=== PATIENT | male | born 1990 | race Caucasian/White ===

== ENCOUNTER 2018-09-22 08:18 | Outpatient (CLI) | payer OTHER, SELFPAY ==
[2018-09-22 12:58] LABS: Hemoglobin A1C 6.3 % (4.5-6.2)
== END 2018-09-22 08:38 ==
PROVIDERS: PCP Family Medicine; Visit Provider Family Medicine
DX: E10.9 Type 1 diabetes mellitus without complications (principal)
CPT/HCPCS: 36415; 83036

== ENCOUNTER 2019-03-16 10:07 | Outpatient (CLI) | payer OTHER, SELFPAY ==
[2019-03-16 13:23] LABS: Hemoglobin A1C 7.1 % (4.5-6.2)
== END 2019-03-16 10:27 ==
PROVIDERS: PCP Family Medicine; Visit Provider Family Medicine
DX: E11.9 Type 2 diabetes mellitus without complications (principal)
CPT/HCPCS: 36415; 83036

== ENCOUNTER 2019-09-20 08:10 | Outpatient (CLI) | payer OTHER, SELFPAY ==
[2019-09-20 12:07] LABS: Hemoglobin A1C 7.8 % (4.5-6.2)
== END 2019-09-20 08:30 ==
PROVIDERS: PCP Family Medicine; Visit Provider Family Medicine
DX: E11.9 Type 2 diabetes mellitus without complications (principal)
CPT/HCPCS: 36415; 83036

== ENCOUNTER 2020-04-04 03:42 | Outpatient (CLI) | payer OTHER, SELFPAY ==
[2020-04-04 09:40] LABS: Hemoglobin A1C 6.9 % (3.8-5.6)
[2020-04-04 11:58] LABS: COMMENT (LAB VIEW ONLY) 118.73 mg/dL; Microalb ug/mg Crea 1.4 ug/mg Cr
[2020-04-04 11:59] LABS: Calculated LDL 106 mg/dL (<100); Cholesterol 204 mg/dL (<200); HDL Cholesterol 76 mg/dL (40-60); Triglyceride 112 mg/dL (<150)
== END 2020-04-04 04:02 ==
PROVIDERS: PCP Family Medicine; Visit Provider Family Medicine
DX: E11.9 Type 2 diabetes mellitus without complications (principal); R73.9 Hyperglycemia, unspecified; E78.5 Hyperlipidemia, unspecified
CPT/HCPCS: 36415; 80061; 82043; 82570; 83036

== ENCOUNTER 2023-02-17 13:06 | Outpatient (CLI) | payer OTHER, SELFPAY ==
[2023-02-17 11:15] LABS: Hemoglobin A1C 7.8 % (<5.7)
[2023-02-17 11:23] LABS: Calculated LDL 136 mg/dL (<100); Cholesterol 214 mg/dL (<200); HDL Cholesterol 73 mg/dL (40-60); Triglyceride 26 mg/dL (<150)
== END 2023-02-17 13:07 | disposition home or self-care (01) ==
LOC: LBO 13:12
PROVIDERS: PCP Family Medicine; Visit Provider Family Medicine
DX: E78.5 Hyperlipidemia, unspecified (principal); E11.51 Type 2 diabetes mellitus with diabetic peripheral angiopathy without gangrene
CPT/HCPCS: 36415; 80061; 83036

== ENCOUNTER 2024-02-23 10:54 | Outpatient (REF) | payer OTHER, SELFPAY ==
[2024-02-23 13:13] LABS: COMMENT (LAB VIEW ONLY) 108.22 mg/dL; Microalb ug/mg Crea 7.4 ug/mg Cr
== END 2024-02-23 10:55 | disposition home or self-care (01) ==
LOC: LBN 10:54
PROVIDERS: PCP Family Medicine; Visit Provider Family Medicine
DX: E11.9 Type 2 diabetes mellitus without complications (principal)
CPT/HCPCS: 82043; 82570

== ENCOUNTER 2025-03-02 09:55 | Outpatient (CLI) | payer OTHER, SELFPAY ==
[2025-03-02 12:51] LABS: CREATININE 0.9 mg/dL (0.70-1.30); Calculated LDL 116 mg/dL (<100); Cholesterol 208 mg/dL (<200); Estimated GFR 114.22 (mL/min/1.73m2); HDL Cholesterol 81 mg/dL (>or=40); Triglyceride 57 mg/dL (<150)
[2025-03-03 09:57] LABS: HIV-1/2 Ag & Ab Screen Negative (Negative)
[2025-03-03 10:20] LABS: Hepatitis C Ab w Rflx HCV PCR Negative (Negative)
== END 2025-03-02 09:56 | disposition home or self-care (01) ==
LOC: LOS 09:56
PROVIDERS: PCP Family Medicine; Referring Provider Family Medicine; Visit Provider Family Medicine
DX: Z00.00 Encounter for general adult medical examination without abnormal findings (principal); I10 Essential (primary) hypertension; Z11.59 Encounter for screening for other viral diseases; E78.5 Hyperlipidemia, unspecified
CPT/HCPCS: 36415; 80061; 86803; 87389; 82565